=== PATIENT | female | born 1965 | race Hispanic/Latino ===

== ENCOUNTER 2023-07-23 08:28 | Observation (INO) | payer MEDICARE ==
[~2023-07-23] VITALS: Ht 167.6 cm; Wt 69.4 kg
[2023-07-23 08:59] LABS: HEMATOCRIT 35.6 % (36-48); MEAN CORPUSCULAR HEMOGLOBIN 28.5 pg (27.0-33.0); MEAN CORPUSCULAR HGB CONC 32.9 g/dL (32.0-36.0); MEAN CORPUSCULAR VOLUME 86.8 fL (79-99); RED BLOOD CELL COUNT(AUTO) 4.1 MIL/uL (4.00-5.50); RED CELL DISTRIBUTION WIDTH 14.2 % (11.0-15.5); WHITE BLOOD COUNT (AUTO) 3.7 K/uL (4.8-10.8)
[2023-07-23 09:06] LABS: CREATININE 0.9 mg/dL (0.5-1.0); POTASSIUM 3.8 mmol/L (3.5-5.1)
[2023-07-23 09:11] LABS: ALBUMIN 4.1 g/dL (3.5-5.0); BILIRUBIN,TOTAL 0.8 mg/dL (0.2-1.0)
[2023-07-23 09:29] LABS: APPEARANCE,URINE CLEAR (CLEAR); BILIRUBIN,URINE NEGATIVE (NEGATIVE); COLOR,URINE LIGHT-YELLOW (YELLOW); GLUCOSE, URINE (UA) NEGATIVE (NEGATIVE); KETONES,URINE NEGATIVE (NEGATIVE); LEUKOCYTE ESTERASE ,URINE 250 Leu/uL (NEGATIVE); NITRATE,URINE NEGATIVE (NEGATIVE); PROTEIN,URINE NEGATIVE (NEGATIVE); UROBILINOGEN,URINE 0.2 mg/dL (0.2-1.0)
[2023-07-23 09:30] LABS: ADD UA MICROSCOPIC YES
[2023-07-23 09:42] LABS: BACTERIA,URINE FEW /HPF (None Seen); MUCUS,URINE RARE LPF (None Seen); OTHER CASTS, URINE 1 /LPF (None Seen); SQUAMOUS EPITHELIAL CELL,UR FEW /HPF (0-2)
[2023-07-23] MEDS ORDERED: TIZA4CAP8 PO (10:00)
[2023-07-23] MEDS ORDERED: AMLO2.5T4 PO (10:00)
[2023-07-23] MEDS ORDERED: UPAD15TA PO (10:00)
[2023-07-23] MEDS ORDERED: GABA800T9 PO (10:00)
[2023-07-23] MEDS ORDERED: CARV25TA PO (10:00)
[2023-07-23] MEDS ORDERED: NITR25CA PO (10:00)
[2023-07-23] MEDS ORDERED: LOSA1TAB54 PO (10:00)
[2023-07-23] MEDS ORDERED: FLUO40CA49 PO (10:00)
[2023-07-23] MEDS ORDERED: ATOR40TA71 PO (10:00)
[2023-07-23] MEDS ORDERED: HYDR12.54 PO (10:00)
[2023-07-23] MEDS ORDERED: LEVE250T2 PO (10:00)
[2023-07-23] MEDS ORDERED: LAGEVRIO PO (10:00)
[2023-07-23] MEDS ORDERED: ALLO300T2 PO (10:00)
[2023-07-23] MEDS: MECLIZINE HCL 25 MG TABLET PO ONE (10:07)
[2023-07-23] MEDS: CEFTRIAXONE 1G VIAL IVPB SCH (14:16)
[2023-07-23] MEDS: 0.9%NACL 1000ML 1,000 ML IV SCH (14:16)
[2023-07-23] MEDS ORDERED: HYDRALAZINE 20MG/ML VIAL IV PRN (14:30)
[2023-07-23] MEDS ORDERED: IOHEXOL-350 75 ML VIAL IV ONE (14:45)
[2023-07-23 20:08] VITALS: BP 151/98; PULSE 65; RESP 22
[2023-07-23] MEDS: FAMOTIDINE 20MG TAB PO SCH (20:33)
[2023-07-23] MEDS: ATORVASTATIN 40 MG TABLET PO SCH (20:33)
[2023-07-23] MEDS: ACETAMINOPHEN 325 MG TAB PO PRN (20:34)
[2023-07-23 23:38] VITALS: BP 121/74; PULSE 59; RESP 20
[2023-07-24] VITALS (12 sets, daily range): BP systolic 116–146; BP diastolic 74–102; PULSE 61–84; RESP 18–22; O2SAT 97
[2023-07-24 04:54] LABS: BASOPHILS # (AUTO) 0.02 K/uL (0.00-0.20); BASOPHILS % (AUTO) 0.5 % (0.0-5.0); EOSINOPHILS # (AUTO) 0.04 K/uL (0.00-0.70); EOSINOPHILS % (AUTO) 0.9 % (0.0-8.0); HEMATOCRIT 34.7 % (36-48); IMMATURE GRANULOCYTE ABSOLUTE 0.01 K/uL (0-1); LYMPHOCYTES # (AUTO) 1.9 K/uL (1.0-4.8); LYMPHOCYTES % (AUTO) 43.1 % (21.0-51.0); MEAN CORPUSCULAR HEMOGLOBIN 28.8 pg (27.0-33.0); MEAN CORPUSCULAR HGB CONC 32.6 g/dL (32.0-36.0); MEAN CORPUSCULAR VOLUME 88.3 fL (79-99); MONOCYTES # (AUTO) 0.2 K/uL (0.1-1.0); MONOCYTES % (AUTO) 4.6 % (3.0-13.0); NEUTROPHILS # (AUTO) 2.2 K/uL (1.8-7.7); NEUTROPHILS % (AUTO) 50.7 % (40.0-77.0); PLATELET COUNT (AUTO) 235 K/uL (130-400); RED BLOOD CELL COUNT(AUTO) 3.93 MIL/uL (4.00-5.50); RED CELL DISTRIBUTION WIDTH 14.1 % (11.0-15.5); WHITE BLOOD COUNT (AUTO) 4.3 K/uL (4.8-10.8)
[2023-07-24 05:21] LABS: ALBUMIN 3.8 g/dL (3.5-5.0); BILIRUBIN,DIRECT 0.2 mg/dL (0.0-0.3); BILIRUBIN,TOTAL 0.8 mg/dL (0.2-1.0); CREATININE 0.9 mg/dL (0.5-1.0); POTASSIUM 3.5 mmol/L (3.5-5.1); TOTAL PROTEIN, SERUM 7.3 g/dL (6.0-8.3)
[2023-07-24] MEDS: ASPIRIN 81MG CHEW TAB PO SCH (08:32)
[2023-07-24] MEDS: ONDANSETRON 4MG INJ IVP PRN (08:58)
[2023-07-24] MEDS: GABAPENTIN 100 MG CAPSULE PO SCH (13:50)
[2023-07-24] MEDS ORDERED: NON-FORMULARY MEDICATION 1 EACH (Gabapentin 800 MG) PO SCH (14:00)
[2023-07-24] MEDS: GABAPENTIN 300 MG CAPSULE PO SCH (14:03)
[2023-07-24] MEDS ORDERED: HYDRALAZINE 20MG/ML VIAL IV PRN (14:30)
[2023-07-24] MEDS: FLUOXETINE HCL 20 MG CAPSULE PO SCH (20:51)
[2023-07-25] VITALS (14 sets, daily range): BP systolic 111–143; BP diastolic 80–96; PULSE 65–90; RESP 17–19; O2SAT 96
[2023-07-25 05:05] LABS: HEMATOCRIT 31.5 % (36-48); MEAN CORPUSCULAR VOLUME 87.7 fL (79-99); RED BLOOD CELL COUNT(AUTO) 3.59 MIL/uL (4.00-5.50); RED CELL DISTRIBUTION WIDTH 14.2 % (11.0-15.5)
[2023-07-25 05:24] LABS: ALBUMIN 3.5 g/dL (3.5-5.0); BILIRUBIN,TOTAL 0.6 mg/dL (0.2-1.0); CREATININE 1.1 mg/dL (0.5-1.0); POTASSIUM 3.6 mmol/L (3.5-5.1); TOTAL PROTEIN, SERUM 6.8 g/dL (6.0-8.3)
[2023-07-25] MEDS: ALLOPURINOL 300 MG TABLET PO SCH (08:48)
[2023-07-25] MEDS: LEVETIRACETAM 250 MG TABLET PO SCH (08:48)
[2023-07-25] MEDS: KCL 20 MEQ ERTAB PO ONE (08:49)
[2023-07-26 00:08] VITALS: BP_SYST 116; BP_SYST 134; BP_SYST 135; BP_DIAS 75; BP_DIAS 90; BP_DIAS 93; PULSE 64; RESP 18
[2023-07-26 04:18] VITALS: BP_SYST 108; BP_SYST 117; BP_SYST 125; BP_DIAS 74; BP_DIAS 84; PULSE 64; RESP 19
[2023-07-26 08:00] VITALS: BP_SYST 116; BP_SYST 125; BP_SYST 130; BP_DIAS 71; BP_DIAS 91; BP_DIAS 93; PULSE 72; PULSE 77; PULSE 84; RESP 17; RESP 18
[2023-07-26] MEDS: UPADACITINIB 15 MG PO SCH (09:05)
[2023-07-26 09:28] VITALS: TEMP 98
[2023-07-26 13:19] VITALS: O2SAT 100
[2023-07-26] MEDS ORDERED: ASPI-1005 PO (13:56)
[2023-07-26] MEDS ORDERED: CEFD300C3 PO (13:57)
== END 2023-07-26 15:30 | disposition home or self-care (01) ==
LOC: EDH 08:28 → INTOOBSV 13:53 → EDHIP 13:53 → 2AH 19:16 → 4DH 07-24 23:51
PROVIDERS: ADMIT Internal Medicine; ATTEND Internal Medicine
DX: G45.9 Transient cerebral ischemic attack, unspecified (principal); N39.0 Urinary tract infection, site not specified; I10 Essential (primary) hypertension; E78.5 Hyperlipidemia, unspecified; M06.9 Rheumatoid arthritis, unspecified; M10.9 Gout, unspecified; F32.A Depression, unspecified; G89.4 Chronic pain syndrome; H55.00 Unspecified nystagmus; H81.399 Other peripheral vertigo, unspecified ear; L40.50 Arthropathic psoriasis, unspecified; M45.9 Ankylosing spondylitis of unspecified sites in spine; Z79.899 Other long term (current) drug therapy; Z98.82 Breast implant status; W18.39XA Other fall on same level, initial encounter; Y93.89 Activity, other specified; Y92.89 Other specified places as the place of occurrence of the external cause; Y99.8 Other external cause status
CPT/HCPCS: 99285; 70496; 96365; 97161; 92522; 92610; 71045; 97530 ×4; 84484; 80053 ×2; 85027 ×2; 87040 ×2; 87088; 81001; 36415 ×3; 70498; 93005; 70450; 93306; 96366 ×2; 96375; 80061; 80076; 80048; 85025; 93356; 76376; 93880; 83735; J7030; J0696 ×3; Q9967; J2405; G0378; A4600